=== PATIENT | female | born 1975 | race Caucasian/White ===

== ENCOUNTER 2021-12-07 14:08 | Outpatient (CLI) | payer OTHER, SELFPAY ==
[2021-12-07 14:43] LABS: Basophils Percent Auto 0.6 % (0.2-1.2); Eosinophils Absolute Auto 0.2 K/mm3 (0-0.3); Eosinophils Percent Auto 2.2 % (0-4.4); Hematocrit 36.2 % (37.0-47.0); Hemoglobin 12.1 g/dL (12.0-15.0); Immature Granulocyte Absolute 0.02 K/mm3 (0.00-0.031); Immature Granulocyte Percent A 0.3 % (0-0.5); Lymphocytes Absolute Auto 2.44 K/mm3 (0.9-3.2); Lymphocytes Percent Auto 36.1 % (18.3-44.2); Mean Corpuscular HGB Conc 33.4 g/dl (32-36); Mean Corpuscular Hemoglobin 29.6 pg (26-34); Mean Corpuscular Volume 88.5 fl (80-100); Mean Platelet Volume 10.6 fl (7.4-10.4); Monocytes Absolute Auto 0.4 K/mm3 (0.1-0.6); Monocytes Percent Auto 5.9 % (2.6-8.5); Neutrophils Absolute Auto 3.7 K/mm3 (1.3-6.7); Neutrophils Percent Auto 54.9 % (45.5-73.1); Platelet Count Result 207 k/mm3 (150-375); Red Blood Count 4.09 M/mm3 (4.2-5.4); Red Cell Distribution Width 12.7 % (11.5-14.5); White Blood Count 6.8 K/mm3 (4.5-10.0)
== END 2021-12-07 14:09 | disposition home or self-care (01) ==
LOC: ANHSURGERY 14:14
PROVIDERS: PCP Physician Assistant; Visit Provider Obstetrics & Gynecology
DX: N85.2 Hypertrophy of uterus (principal); Z01.818 Encounter for other preprocedural examination
CPT/HCPCS: 36415; 85025; 86850; 86900; 86901

== ENCOUNTER 2021-12-10 01:44 | Day surgery (SDC) | payer OTHER, SELFPAY ==
[2021-12-01 10:23] VITALS: BMI 24.7
--- NOTE | 2021-12-01 10:38 | PC.NURSE ---
Report to the Outpatient Waiting Room, entrance under the green pavilion located off [facility], at time 6:00 on date 12/10/21. OR Time: 7:30. Time changes happen often and if your time is changed the preop area will call you the afternoon before. - You and your visitor will be asked to self-screen and do not enter if you have any COVID symptoms. - Only one visitor and NO children visitors are allowed at this time. YOU WILL BE ALLOWED 2 VISITORS AT A TIME ONCE YOU ARE IN YOUR ROOM AFTER SURGERY. - The patient visitor is requested to leave or wait in car when not with patient due to restrictions. - A mask is required within the hospital. Patients may have clear liquids (water, carbonated beverages, clear teas, apple juice) until 3 hours prior to surgery (4:30) with a maximum of 20 ounces. - No food from midnight until time of surgery Take the following medications with a SIP of water the morning of surgery: N/A Medications to discontinue per physician: N/A Date to take last dose: N/A Please no make-up, nail maltese, hairspray, perfume, deodorant, or body powder the day of surgery. No jewelry (including any body piercings) or valuables the day of surgery, leave them at home. Please take a shower or bath the night before, or the morning of, surgery with an antibacterial soap. Wear comfortable, loose fitting clothing. - Jewelry must be removed prior to entering the operating room. Rings and piercings that are not removed may be cut off. - The hospital will not accept responsibility for valuables. - Please leave all valuables, including medications, at home the day of surgery. If you are going home after surgery, a licensed sweeper driver must drive you home. - NO public transportation without another adult. - We recommend that an adult stay with you for 24 hours following discharge. - We also recommend that you do not drive, make important decision, drink alcoholic beverages, or take any drugs that were not prescribed by your health care provider for at least 24 hours after your discharge time. Follow any additional instructions given to you from your surgeon. If you or anyone in your household have experienced Covid symptoms in the past week, please notify your surgeon or the nurse liaison at the phone number below for possible testing. Telephone instructions given to PT -AMINA HASKINS and asked if any additional questions and then verbalized understanding. Patient advised to call surgeon office or pre surgery nurse liaison [phone] if any additional questions.
--- NOTE | 2021-12-06 12:08 | PM.IMHP ---
H&P: HPI History of Present Illness Date/Time: 12/06/21 12:08 Chief Complaint: Enlarged uterus pelvic Narrative: A 46-year-old female debris this was enlarged fibroid uterus and pelvic pain. It has been refractory to medical therapy risks and benefits of the procedure reviewed including not exclusive of , aspiration pneumonia, bleeding, transfusion, perforation injury to bowel, bladder, ureters other internal organs with need for open laparotomy. She had all questions answered. She received the ACOG handout entitled hysterectomy as well as the de Ashly handout. She asked to proceed PMF Family History Family History Mother Patient's mother is in good health Family history of hypothyroidism Father Patient's father is in good health Family history of hypothyroidism Social History Social History Smoking status: Never smoker Alcohol intake: current Drinks per week: 2 Substance use: never Substance use type: does not use Spiritual care concerns: No Meds Home Medications and Allergies Home Medications Medication Instructions Recorded Confirmed Type No Home Medications 12/01/21 12/01/21 History Allergies Allergy/AdvReac Type Severity Reaction Status Date / Time No Known Allergies Allergy Mild Verified 12/01/21 10:22 Exam Const: General: cooperative, healthy appearing, comfortable and well groomed Nutritional Appearance: average body habitus Orientation/consciousness: oriented to person, oriented to place and oriented to time HENMT: Head: normal to inspection Neck: Neck: normal visual inspection Resp: Effort & Inspection: normal respiratory effort Cardio: Rate: regular rate Rhythm: regular rhythm Heart sounds: S1 normal heart sound present and S2 normal heart sound present GI: Inspection: normal to inspection Auscultation: normal bowel sounds : Speculum Exam - Vagina: normal appearance of the vagina Speculum Exam - Cervix: normal appearance of the cervix Bimanual exam- vagina & uterus: enlarged Bimanual Exam- Adnexa, other: normal adnexae Assessment and Plan Assessment and plan (1) Enlarged uterus: Code(s): N85.2 - Hypertrophy of uterus Status: Acute (2) Pelvic pain: Code(s): R10.2 - Pelvic and perineal pain Status: Acute Plan Robotic total vaginal hysterectomy and bilateral salpingectomies
[2021-12-10] VITALS (12 sets, daily range): BP systolic 92–136; BP diastolic 57–85; PULSE 56–78; RESP 12–18; TEMP 36.3–37.6; O2SAT 98–100
--- NOTE | 2021-12-10 06:27 | WPDHPUPDATE1 ---
History and Physical Update Update Date/Time: 12/10/21 06:27 History and Physical has been reviewed, including an updated exam of the patient. There are NO changes in the patient's condition. Risks, benefits, and alternatives have been discussed and questions answered. Patient agrees to proceed with procedure.
[2021-12-10] MEDS: ACETAMINOPHEN 500 MG TABLET 1000 MG PO (06:39)
[2021-12-10] MEDS: LACTATED RINGERS 1,000 ML 30 ML IV CONT ×2 (06:48→08:49)
[2021-12-10] MEDS: KETOROLAC 15 MG/ML VIAL (*BKC) IV PUSH (06:49)
--- NOTE | 2021-12-10 07:07 | P.PNAN_ITS ---
Anes - Initial Pre Proc Eval Procedure: Operation Date: 12/10/21 07:30 Proposed Procedures p Robotic Assisted Total Vaginal Hysterectomy with Bilateral Salpingectomy - Mao Camarillo MD Date/Time: 12/10/21 07:07 Surgeon: Mao Camarillo MD Pre Op Diagnosis: Enlarged Uterus, Pelvic Pain Patient Data Age: 46 Gender: F Height: 1.57 m Weight: 62.2 kg Last Vital Signs Temp 36.9 C 12/10/21 06:27 Pulse 75 12/10/21 06:27 Resp 16 12/10/21 06:27 BP 112/75 12/10/21 06:27 Pulse Ox 100 12/10/21 06:27 O2 Del Method Room Air 12/10/21 06:27 Allergies Allergy/AdvReac Type Severity Reaction Status Date / Time No Known Allergies Allergy Mild Verified 12/10/21 06:36 Home Medications Medication Instructions Recorded Confirmed Type hydrocodone 5 mg-acetaminophen 325 1 tablet PO Q4H PRN pain #30 tabs 12/10/21 Rx mg tablet Patient hx anesthesia problems: none Family hx anesthesia problems: none Results Review: All pre-operative results and documents have been reviewed as part of the pre- operative evaluation. [facility] Surgical History Surgical History (Updated 12/10/21 @ 07:07 by Mao Cruz MD) History of D&C Family History Family History Mother Patient's mother is in good health Family history of hypothyroidism Father Patient's father is in good health Family history of hypothyroidism Social History Social History Smoking status: Never smoker Alcohol intake: current Drinks per week: 2 Substance use: never Substance use type: does not use Living arrangements: with family Spiritual care concerns: No Anes - Eval Final PreProcedure Day of Procedure 12/10/21 07:07 Patient weight: normal Heart: regular rate and rhythm Lungs: clear to auscultation Airway: Mallampati scale class II Neurological: alert and oriented Last oral intake: >/= 8 hours ASA classification: II Emergent: no Anesthetic plan: proceed Anesthesia type and monitoring: general ETT and standard monitoring Results Review: All pre-operative results and documents have been reviewed as part of the pre- operative evaluation. Informed Consent: The patient's anesthetic plan and its attendant risks and benefits were discussed with the patient/family/POA. Questions were solicited and answers provided to the satisfaction of the patient/family/POA.
[2021-12-10] MEDS: ceFAZolin 2 GM/D5W 50 ML 2 GM/50 ML BAG IVPB (07:25)
--- NOTE | 2021-12-10 08:41 | P.OP_ITS ---
Procedure Note - Detailed Date of Procedure 12/10/21 Pre-op Diagnosis Enlarged Uterus, Pelvic Pain Post-op Diagnosis Same Procedure Performed Robotic total vaginal hysterectomy and bilateral salpingectomies Surgeon Mao Camarillo MD Logistics Analytics Manager remberto mendoza Anesthesia General Indications is a 46-year-old female with symptomatic uterine fibroids bleeding and pain Findings markedly enlarged uterus. Normal-appearing ovaries. Tubes status post tubal ligation. Description of Procedure Patient was prepped draped in the normal sterile fashion placed in the dorsal lithotomy position. Under excellent general trach anesthesia weighted speculum placed in posterior fornix of vagina. Uterus sounded to 9cm. Serial dilatation fragmented dilators performed followed by passage of the 8. MAXI and the 3. Cold cup. Next 16 [place] catheter was placed in the bladder drained of clear urine in the Ramírez bag left in place. Gloves were changed A supraumbilical incision was made the Veress needle passed in the abdomen. Abdomen filled with CO2 gas [id number]. The 8mm trocar advanced in the abdomen downside visualized no injury seen. Gas reattached patient placed in Trendelenburg. Left and right lateral quadrant incision made 8mm trocars advanced under direct visualization using normal right upper quadrant incision made the mm trocar advanced under visualization. Injury seen robot was docked. Attention was turned to the console. The left round ligament was grasped, burned, cut. A bladder flap was formed anteriorly. The uterus was large irregular consistent with a large fibroid uterus. The opposite round ligament was grasped, burned, cut after relieving the bladder and pushing it caudally. The left fallopian tube was then sharply dissected off the ovary in complex and passed a to the cardiology physician assistant port. This was repeated removing the fallopian tube on the right. Next the left utero-ovarian ligament was clamped, burned, cut bringing this to the previously cut round ligament. Conserving the right ovary the utero-ovarian ligament was clamped, burned, cut and brought to the previously cut right round ligament. The cardinal broad ligaments on the left were then serially skeletonized. These were clamped, burned, cut and brought down the lateral edge of this large fibroid uterus. Large tortuous uterine vessels were noted and these were individually clamped, burned, cut. In like fashion the cardinal broad ligaments on the right were serially skeletonized clamping burning and cutting until the uterine vessels could be seen on right these were individually clamped, burned,. Excellent blanching of the uterus was noted colpotomy incision the cervix uterus were removed through the vagina. Vagina then closed with continuous running 0V lock from lateral edge lateral edge back to the midline. Blood loss estimated 50cc and the pedicles appeared dry hematoma was placed over the raw surface area. The trocars removed after gas removed from the abdomen. At and the after the robot had been docked undocked. These incisions were closed with 4 Monocryl and glue. Instruments removed from the vagina and the patient was awakened. All sponge, needle, ins trument counts were correct. There were no immediate complications Estimated Blood Loss 50 Drains No Packing No Pathology Yes Complications No immediate complications Condition Stable Disposition PACU
--- NOTE | 2021-12-10 16:56 | PM.DS ---
DS: Admitting Diagnosis Discharge Date 12/10/2021 Admitting Diagnosis Pelvic pain/enlarged uterus DS: Discharge Diagnosis Discharge Diagnosis (1) Pelvic pain: Code(s): R10.2 - Pelvic and perineal pain Status: Acute (2) Enlarged uterus: Code(s): N85.2 - Hypertrophy of uterus Status: Acute DS: Summary Hospital Course Reason for hospitalization: Patient was admitted for robotic total vaginal hysterectomy and bilateral salpingectomy Hospital Course: The patient underwent an unremarkable robotic total vaginal hysterectomy and bilateral salpingectomy. The procedure was unremarkable. Her hospital course was unremarkable. She remained afebrile. She was up, voiding without difficulty Time Spent with Patient Time attestation: Total time spent providing and/or coordinating discharge services: Exam Const: General: cooperative, healthy appearing and comfortable Orientation/consciousness: oriented to person, oriented to place and oriented to time Resp: Effort & Inspection: normal respiratory effort Cardio: Rate: regular rate Rhythm: regular rhythm Heart sounds: S1 normal heart sound present and S2 normal heart sound present GI: Inspection: normal to inspection and incision (Wounds are clean dry and intact) DS: Data Data Completed and Pending Pending studies at discharge: Pending at discharge 12/10/21 07:59 Surgical [PTH] Routine Discharge Plan Discharge Patient Disposition: Home, Self-Care Patient Instructions: Pain Management (DC), Laparoscopic Hysterectomy (DC) Stand Alone Forms: General Discharge Instructions Follow-up/Referrals: Mao Barros MD [Physician] - Discharge Medications: New hydrocodone-acetaminophen 5-325 mg tablet 1 tablet PO Q4H PRN (Reason: pain) Qty: 30 0RF
[2021-12-10] MEDS: SIMETHICONE 80 MG TAB.CHEW PO (19:18)
== END 2021-12-10 19:40 | disposition home or self-care (01) ==
LOC: ANHSURGERY 06:28 → ANHOB2 10:10
PROVIDERS: PCP Physician Assistant; Visit Provider Obstetrics & Gynecology
PROC: (CPT 58554; principal; 2021-12-10 07:30)
DX: N85.2 Hypertrophy of uterus (principal); D25.9 Leiomyoma of uterus, unspecified; R10.2 Pelvic and perineal pain; N83.8 Other noninflammatory disorders of ovary, fallopian tube and broad ligament
CPT/HCPCS: 58554; S2900; 88307; 99199; A9270; J0690; J1100; J1885; J2250; J2405; J2704; J2710; J3010; J7030; J7120

== ENCOUNTER 2023-02-10 02:11 | Day surgery (SDC) | payer OTHER, SELFPAY ==
--- NOTE | 2023-02-07 16:13 | PM.IMHP ---
H&P: HPI History of Present Illness Date/Time: 02/07/23 16:13 Chief Complaint: left ovarian cyst/ pelvic pain Narrative: this is a 47 year status post hysterectomy who is admitted for laparoscopy left cystectomy secondary to pelvic pain. Ultrasound shows an ovarian cyst as very benign appearance however her pain has continued. She opts for laparoscopy with cystectomy versus cystotomy. Risks and benefits reviewed including not exclusive , aspiration, bleeding, transfusion, perforation injury to bowel, bladder, ureters, or other internal organs with need for open laparotomy. She received the ACOG handout entitled laparoscopy. She had all questions answered. She asked to proceed [facility] Surgical History Surgical History History of D&C Family History Family History Mother Patient's mother is in good health Family history of hypothyroidism Father Patient's father is in good health Family history of hypothyroidism Social History Social History Smoking status: Never smoker Alcohol intake: current Drinks per week: 2 Substance use: never Substance use type: does not use Living arrangements: with family Spiritual care concerns: No Meds Home Medications and Allergies Home Medications Medication Instructions Recorded Confirmed Type hydrocodone 5 mg-acetaminophen 325 1 tablet PO Q4H PRN pain #30 tabs 12/10/21 Rx mg tablet Allergies Allergy/AdvReac Type Severity Reaction Status Date / Time No Known Allergies Allergy Mild Verified 12/10/21 06:36 Exam Const: General: cooperative, healthy appearing, comfortable and average body habitus Orientation/consciousness: oriented to person, oriented to place and oriented to time HENMT: Head: normal to inspection Resp: Effort & Inspection: normal respiratory effort Cardio: Rate: regular rate Rhythm: regular rhythm Heart sounds: S1 normal heart sound present and S2 normal heart sound present GI: Inspection: normal to inspection : External Female Exam: normal external appearance Speculum Exam - Vagina: normal appearance of the vagina Speculum Exam - Cervix: Cervix absent Bimanual exam- vagina & uterus: uterus absent Bimanual Exam- Adnexa, other: tender bilaterally Assessment and Plan Assessment and plan (1) Pelvic pain: Code(s): R10.2 - Pelvic and perineal pain Status: Acute (2) Left ovarian cyst: Code(s): N83.202 - Unspecified ovarian cyst, left side Status: Acute Plan laparoscopy with left ovarian cystectomy versus cystotomy
--- NOTE | 2023-02-08 10:51 | PC.NURSE ---
Report to the Outpatient Waiting Room, entrance under the green pavilion located off [facility], at time 630__ on date ____02/10___. Planned Procedure Time: __830 . Time changes happen often and if your time is changed the preop area will call you the afternoon before. - You and your visitor will be asked to self-screen and do not enter if you have any COVID symptoms. - A mask is optional within the hospital at this time. Patients may have clear liquids (water, carbonated beverages, clear teas, apple juice) until 3 hours prior to surgery with a maximum of 20 ounces. - No food from midnight until time of surgery stop 530 Take the following medications with a SIP of water the morning of surgery: take nothing DO NOT STOP ANY OF YOUR OTHER PRESCRIPTION MEDICATIONS PRIOR TO SURGERY ?EXCEPT THE FOLLOWING Medications to discontinue per physician NA Date to take last dose Please no make-up, nail khmer, hairspray, perfume, deodorant, or body powder the day of surgery. No jewelry (including any body piercings) or valuables the day of surgery, leave them at home. Please take a shower or bath the night before, or the morning of, surgery with an antibacterial soap. Wear comfortable, loose fitting clothing. Children are encouraged to wear pajamas. - Jewelry must be removed prior to entering the operating room. Rings and piercings that are not removed may be cut off. - The hospital will not accept responsibility for valuables. - Please leave all valuables, including medications, at home the day of surgery. If you are going home after surgery, a licensed tower truck driver must drive you home. - NO public transportation without another adult if you receive anesthesia. - We recommend that an adult stay with you for 24 hours following discharge. - We also recommend that you do not drive, make important decision, drink alcoholic beverages, or take any drugs that were not prescribed by your health care provider for at least 24 hours after your discharge time. Follow any additional instructions given to you from your surgeon. If you or anyone in your household have experienced Covid symptoms in the past week, please notify your surgeon or the nurse liaison at the phone number below for possible testing. Telephone instructions given to patient and asked if any additional questions and then verbalized understanding. Patient advised to call surgeon office or pre surgery nurse liaison [phone] if any additional questions.
[2023-02-08 10:57] VITALS: BMI 24.7
[2023-02-10] VITALS (8 sets, daily range): BP systolic 119–144; BP diastolic 52–84; PULSE 62–77; RESP 14–18; TEMP 36.6–37.1; O2SAT 100
--- NOTE | 2023-02-10 06:16 | WPDHPUPDATE1 ---
History and Physical Update Update Date/Time: 02/10/23 06:16 History and Physical has been reviewed, including an updated exam of the patient. There are NO changes in the patient's condition. Risks, benefits, and alternatives have been discussed and questions answered. Patient agrees to proceed with procedure.
[2023-02-10] MEDS: LACTATED RINGERS 1,000 ML 30 ML IV CONT (07:20)
[2023-02-10] MEDS: ACETAMINOPHEN 500 MG TABLET 1000 MG PO (07:22)
[2023-02-10] MEDS: SCOPOLAMINE 1.5 MG PATCH TRANSDERM (07:22)
[2023-02-10] MEDS: KETOROLAC 15 MG/ML VIAL (*BKC) IV PUSH (07:22)
--- NOTE | 2023-02-10 08:05 | WPDANESEPPF ---
Anes - Initial Pre Proc Eval Procedure: Operation Date: 02/10/23 08:30 Proposed Procedures p Laparoscopic Left Ovarian Cystectomy - Mao Camarillo MD Date/Time: 02/10/23 08:05 Surgeon: Mao Camarillo MD Pre Op Diagnosis: left ovarian cyst Patient Data Age: 47 Gender: F Height: 1.57 m Weight: 67.4 kg Last Vital Signs Temp 37.1 C 02/10/23 07:36 Pulse 73 02/10/23 07:36 Resp 16 02/10/23 07:36 BP 119/68 02/10/23 07:36 Pulse Ox 100 02/10/23 07:36 O2 Del Method Room Air 02/10/23 07:36 Allergies Allergy/AdvReac Type Severity Reaction Status Date / Time No Known Allergies Allergy Mild Verified 02/10/23 06:53 Home Medications Medication Instructions Recorded Confirmed Type linaclotide 145 mcg capsule 145 mcg PO DAILY 02/08/23 02/08/23 History (Linzess) hydrocodone 5 mg-acetaminophen 325 1 tablet PO Q4H PRN pain #20 tabs 02/10/23 Rx mg tablet Patient hx anesthesia problems: none Family hx anesthesia problems: none Results Review: All pre-operative results and documents have been reviewed as part of the pre-operative evaluation. [facility] Past Medical History Medical History (Updated 02/10/23 @ 08:05 by Mao Cruz MD) Overweight Surgical History Surgical History (Updated 02/10/23 @ 08:05 by Mao Cruz MD) H/O: hysterectomy History of D&C Family History Family History Mother Patient's mother is in good health Family history of hypothyroidism Father Patient's father is in good health Family history of hypothyroidism Social History Social History Smoking status: Never smoker Alcohol intake: current Drinks per week: 2 Substance use: never Substance use type: does not use Living arrangements: with family Spiritual care concerns: No Anes - Eval Final PreProcedure Day of Procedure 02/10/23 08:05 Patient weight: overweight Heart: regular rate and rhythm Lungs: clear to auscultation Airway: Mallampati scale class II Neurological: alert and oriented Last oral intake: >/= 8 hours ASA classification: II Emergent: no Anesthetic plan: proceed Anesthesia type and monitoring: general ETT and standard monitoring Results Review: All pre-operative results and documents have been reviewed as part of the pre-operative evaluation. Informed Consent: The patient's anesthetic plan and its attendant risks and benefits were discussed with the patient/family/POA. Questions were solicited and answers provided to the satisfaction of the patient/family/POA.
--- NOTE | 2023-02-10 08:52 | W.PM.PROC2 ---
Procedure Note - Detailed Date of Procedure 02/10/23 Pre-op Diagnosis left ovarian cyst Post-op Diagnosis Same (Left ovarian cyst with endometriosis and adhesions) Procedure Performed laparoscopic destruction of endometriosis/destruction left ovarian cyst/lysis of adhesions Surgeon Mao Camarillo MD Anesthesia General Indications this is a 47-year-old female status post hysterectomy with left cyst Findings absent uterus cervix. Left ovarian cyst which was benign in nature multiple adhesions the omentum to the vaginal cuff. Areas of endometriosis along the vaginal cuff in powder burn endometriosis formed. Normal-appearing appendix. Description of Procedure Patient was prepped draped in the normal sterile fashion placed in the dorsal lithotomy position. Under excellent general trach anesthesia a sponge stick was placed in the vagina and the bladder drained of clear urine. The weighted speculum was removed the gloves were changed. An infraumbilical incision made the Veress needle passed in the abdomen. Abdomen with CO2 gas to 15 of mercury. The 5mm trocar advanced under direct visualization assuring injury. Patient placed in Trendelenburg and a suprapubic incision made. The 5mm trocar advanced under direct visualization assuring no injury. The areas of scar tissue were seen and using sharp dissection with Endo Alondra these were sharply dissected away from the vaginal cuff. The ovarian cyst on the left was photo documented normal in linear fashion and drained of serous fluid vigorous irrigation undertaken until clear and the areas of endometriosis point cauterized at 35 w per 2nd. Appendix it appeared within normal limits. No other abnormalities were seen. Lower site removed. The gas removed from the abdomen. The upper site removed. The incisions closed with 4 Monocryl and glue. The sponge stick removed from the vagina the patient went recovery in satisfactory condition. All sponge, needle, instrument counts were correct. There were no immediate complications Estimated Blood Loss 5 Drains No Packing No Pathology None sent Complications No immediate complications Condition Stable Disposition PACU
[2023-02-10] MEDS: fentaNYL CITRATE INJ (*CRX) 100 MCG/2 ML VIAL 25 MCG IV PUSH ×4 (09:35→09:45)
== END 2023-02-10 10:41 | disposition home or self-care (01) ==
PROVIDERS: PCP Physician Assistant; Visit Provider Obstetrics & Gynecology
PROC: (CPT 49320; principal; 2023-02-10 08:30)
DX: N83.202 Unspecified ovarian cyst, left side (principal); N80.8 Other endometriosis; N73.6 Female pelvic peritoneal adhesions (postinfective)
CPT/HCPCS: 58662; 36415; 86850; 86900; 86901; A9270; J0330; J1100; J1885; J2250; J2405; J2704; J3010; J7120

== ENCOUNTER 2024-03-02 11:21 | Outpatient (CLI) | payer OTHER, SELFPAY ==
--- NOTE | ~2024-03-02 | MR_ITS ---
MRI of the left shoulder Technique: Axial proton-density fat-sat images, coronal proton density fat-sat and T2 fat-sat images, and sagittal T1-weighted and T2 fat-sat images were acquired. Clinical History: Rotator cuff tendinitis Findings: There is mild AC joint degenerative change, with minimal fluid in the joint space. Coracocl avicular, coracoacromial, and coracohumeral ligaments are intact. Supraspinatus and infraspinatus tendons are intact, without partial or full-thickness tear. Subscapul mark tendon is intact. Tendon of long head of the biceps is intact. No labral tear evident. Inferior glenohumeral ligament is intact. No degenerative change or effusion of the glenohumeral join t. No fluid distention of the subacromial/subdeltoid bursa. No muscle atrophy or edema. Impression: Mild AC joint degenerative change. No other significant findings. Reviewed, dictated and finalized at [facility]. F DISPATCHER Impression: Mild AC joint degenerative change. No other significant findings.
== END 2024-03-02 11:22 | disposition home or self-care (01) ==
PROVIDERS: PCP Physician Assistant; Visit Provider Orthopaedic Surgery
DX: M75.82 Other shoulder lesions, left shoulder (principal); M75.42 Impingement syndrome of left shoulder; M19.012 Primary osteoarthritis, left shoulder
CPT/HCPCS: 73221